=== PATIENT | male | born 1970 | race Caucasian/White ===

== ENCOUNTER 2022-03-08 13:15 | Emergency (ER) | payer OTHER ==
[2022-03-08] MEDS ORDERED: LIDOCAINE 5% TOPICAL PATCH TP ONE (13:54)
[2022-03-08] MEDS ORDERED: METHOCARBAMOL 750 MG TAB PO ONE (13:54)
[2022-03-08] MEDS ORDERED: ACETAMINOPHEN 500 MG TABLET (FP) PO ONE (13:54)
[2022-03-08] MEDS ORDERED: KETOROLAC TROMETHAMINE 30 MG/1 ML VIAL IM ONE (13:54)
[2022-03-08] MEDS ORDERED: KETOROLAC TROMETHAMINE 30 MG/1 ML VIAL ONE (14:28)
[2022-03-08] MEDS ORDERED: ACETAMINOPHEN 500 MG TABLET (FP) ONE (14:28)
[2022-03-08] MEDS ORDERED: METHOCARBAMOL 500 MG TABLET ONE (14:28)
[2022-03-08] MEDS ORDERED: LIDOCAINE 5% TOPICAL PATCH ONE (14:29)
[2022-03-08 15:19] VITALS: BP 127/86; PULSE 62; TEMP 98.8; BMI 27.1
[2022-03-08] MEDS ORDERED: LIDOCAINE PATCH REMOVAL MC SCH (22:00)
== END 2022-03-08 15:23 | disposition home or self-care (01) ==
LOC: FER 13:15
PROC: 3E023GC Introduction of Other Therapeutic Substance into Muscle, Percutaneous Approach (ICD-10-PCS; principal; 2022-03-08)
DX: S13.9XXA Sprain of joints and ligaments of unspecified parts of neck, initial encounter (principal); V49.50XA Passenger injured in collision with unspecified motor vehicles in traffic accident, initial encounter
CPT/HCPCS: 71046-TC-FY; 99284-25